=== PATIENT | female | born 1975 | race Caucasian/White ===

== ENCOUNTER 2019-10-09 14:36 | Emergency (ER) | payer MEDICAID, SELFPAY ==
[2019-10-09 15:46] VITALS: BP 105/76; PULSE 81; RESP 16; TEMP 36.9; O2SAT 100; BMI 22.6
--- NOTE | 2019-10-09 15:56 | HMH.EDUTC ---
[facility] Disposition Clinical Impression: Bronchitis, Exposure to COVID-19 virus Disposition: Home, Self-Care Condition on Discharge: Good Instructions: Preventing the Spread of Coronavirus Discharge Instructions Additional Instructions: Drink plenty of fluids. Take tylenol for pain or fever. Take the medications as directed. Follow up with your regular doctor. GO TO THE ER FOR ANY WORSENING SYMPTOMS FOLLOW THE DIRECTIONS ON THE COVID-19 HAND OUT THAT WE GAVE YOU REGARDING SELF-ISOLATION UNTIL YOU KNOW YOUR COVID-19 RESULTS Prescriptions: Ondansetron [Zofran 4mg ODT] 4 mg PO Q8HP PRN #20 tab.rapdis PRN Reason: Nausea Transmission Status: Received by [id number] Azithromycin [Z-Maurice 250mg Tab*] 250 mg PO UD DOSE PK #6 tab Transmission Status: Received by [id number] Referrals: Provider,Referral, [Primary Care Provider] - Time of Disposition: 15:58 Medical Decision Making - Medical Records Medical records reviewed: No: I reviewed the patient's medical records. - Daniel Inquiry Pt receiving controlled substance: No Vital Signs: 10/09/19 15:46 10/09/19 16:22 Temperature 98.4 F 98.4 F Temperature Source Oral Oral Pulse Rate 81 Pulse Rate [Right] 81 Respiratory Rate 16 16 Blood Pressure 105/76 L Blood Pressure [Right Arm] 105/76 L Blood Pressure Mean [Right Arm] 85 Blood Pressure Source Automatic Cuff Blood Pressure Source [Right Arm] Automatic Cuff Blood Pressure Position Sitting Blood Pressure Position [Right Arm] Sitting 02 Sat by Pulse Oximetry 100 Oxygen Delivery Method Room Air Room Air [facility] HPI - General Stated complaint: covid symptoms Time Seen by Provider: 10/09/19 15:56 Mode of Arrival: Ambulatory Source of Information: Patient Limitations: No Limitations Description of Symptoms (Recalled from Triage Doc. by RN): Pt was exposed to covid on ad c/o cough, fever, headaches and leg aches HEENT Symptoms (Recalled from RN notes): No Resp Symptoms (Recalled from RN notes): No Skin Symptoms (Recalled from RN notes): No MS Symptoms (Recalled from RN notes): No Functional Status (Recalled from RN notes): na - History of Present Illness Provider Complaint: She reports that she has felt bad for the past 2 days. She has ran a fever up to 100.4 and she has a dry cough. - Related Data Previous Rx's Medication Instructions Recorded Azithromycin [Z-Maurice 250mg Tab*] 250 mg PO UD DOSE PK #6 tab 10/09/19 Ondansetron [Zofran 4mg ODT] 4 mg PO Q8HP PRN #20 tab.rapdis 10/09/19 Allergies Allergy/AdvReac Type Severity Reaction Status Date / Time CODEINE Allergy Severe hives/shortness Uncoded 02/17/17 15:30 of air PENICILLIN Allergy Unknown unknown Uncoded 02/17/17 15:30 PINEAPPLE Allergy Unknown anaphylacti Uncoded 02/17/17 15:30 c - Worker's Comp Is this a Worker's Comp case?: No H History - Hepatitis A Screen Drug use history?: No High risk sexual behaviors?: No History of sexually transmitted infection?: No Currently employed?: No Childcare worker?: Yes Do you have indoor plumbing?: Yes Do you have electricity?: Yes Attestation statement:: This patient has been screened for Hepatitis A risk factors. I have reviewed the patient's past medical history: Yes ROS Obtained: Yes All systems reviewed & no additional complaints - Constitutional Constitutional: Reports chills, Reports fever(s), Reports poor appetite, Reports malaise - Eyes Eyes: Denies eye discharge - ENT Ears, Nose, Mouth, and Throat: Reports as per HPI Physical Exam - General General appearance: alert, in no apparent distress - Head Head exam: atraumatic, normocephalic, normal inspection - Eye Eye exam: Present: normal appearance, PERRL, EOMI - ENT ENT exam: Present: normal exam, normal oropharynx, mucous membranes moist, TM's normal bilaterally, normal external ear exam - Neck Neck exam: Present: normal inspection, f
[2019-10-09 16:22] VITALS: BP 105/76; PULSE 81; RESP 16; TEMP 36.9; O2SAT 100
== END 2019-10-09 16:23 | disposition home or self-care (01) ==
PROVIDERS: Emergency Provider Nurse Practitioner Family
DX: J20.9 Acute bronchitis, unspecified (principal); Z20.828 Contact with and (suspected) exposure to other viral communicable diseases; Z88.0 Allergy status to penicillin; Z88.5 Allergy status to narcotic agent
CPT/HCPCS: 99201; U0003

== ENCOUNTER 2019-12-02 19:25 | Emergency (ER) | payer BC, SELFPAY ==
[2019-12-02 19:48] VITALS: BP 111/80; PULSE 85; RESP 14; TEMP 36.9; O2SAT 99; BMI 23.4
--- NOTE | 2019-12-02 19:57 | HMH.EDUTC ---
[facility] Disposition Clinical Impression: Exposure to COVID-19 virus Sinusitis Qualifiers: Sinusitis location: unspecified location Chronicity: acute Recurrence: non-recurrent Qualified Code(s): J01.90 - Acute sinusitis, unspecified Disposition: Home, Self-Care Condition on Discharge: Good Instructions: Sinusitis, DI for Sinusitis, Preventing the Spread of Coronavirus Discharge Instructions Additional Instructions: Drink plenty of fluids. Take tylenol or ibuprofen for pain or fever. Take the medications as directed. Follow up with your regular doctor. GO TO THE ER FOR ANY WORSENING SYMPTOMS FOLLOW THE DIRECTIONS ON THE COVID-19 HAND OUT THAT WE GAVE YOU REGARDING SELF-ISOLATION UNTIL YOU KNOW YOUR COVID-19 RESULTS Prescriptions: Ondansetron [Zofran 4mg ODT] 4 mg PO Q8HP PRN #9 tab.rapdis PRN Reason: Nausea Transmission Status: Pending to [id number] Azithromycin [Z-Maurice 250mg Tab*] 250 mg PO UD DOSE PK #6 tab Transmission Status: Pending to [id number] Referrals: Lili Alba MD [Primary Care Provider] - Forms: Work/School Release Time of Disposition: 20:00 Medical Decision Making - Medical Records Medical records reviewed: No: I reviewed the patient's medical records. - Daniel Inquiry Pt receiving controlled substance: No Vital Signs: 12/02/19 19:48 Temperature 98.4 F Temperature Source Oral Pulse Rate [Radial] 85 Respiratory Rate 14 Blood Pressure [Right Arm] 111/80 Blood Pressure Mean [Right Arm] 90 Blood Pressure Source [Right Arm] Automatic Cuff Blood Pressure Position [Right Arm] Sitting 02 Sat by Pulse Oximetry 99 Oxygen Delivery Method Room Air - Lab Data Lab results reviewed: Yes: I reviewed the patient's lab results. Orders (Tests/Meds): ORDERS Category Date Time Status Covid-19 Nasal PCR ([facility]) Routine Lab 12/02/19 19:55 Received [facility] HPI - General Stated complaint: Sore throat,cough,V&D,Abd pain want Covid testing Time Seen by Provider: 12/02/19 19:57 Mode of Arrival: Ambulatory Source of Information: Patient Limitations: No Limitations Description of Symptoms (Recalled from Triage Doc. by RN): covid exposure, sore thraot, costa, n/d, stomach cramps, body aches. HEENT Symptoms (Recalled from RN notes): Yes Resp Symptoms (Recalled from RN notes): Yes Skin Symptoms (Recalled from RN notes): No MS Symptoms (Recalled from RN notes): Yes Functional Status (Recalled from RN notes): wnl - History of Present Illness Provider Complaint: She c/o body aches, nausea, sinus drainage, head ache and diarrhea. She has felt bad for about 4 days, but today her symptoms intensified. - Related Data Previous Rx's Medication Instructions Recorded Azithromycin [Z-Maurice 250mg Tab*] 250 mg PO UD DOSE PK #6 tab 10/09/19 Ondansetron [Zofran 4mg ODT] 4 mg PO Q8HP PRN #20 tab.rapdis 10/09/19 Azithromycin [Z-Maurice 250mg Tab*] 250 mg PO UD DOSE PK #6 tab 12/02/19 Ondansetron [Zofran 4mg ODT] 4 mg PO Q8HP PRN #9 tab.rapdis 12/02/19 Allergies Allergy/AdvReac Type Severity Reaction Status Date / Time CODEINE Allergy Severe hives/shortness Uncoded 02/17/17 15:30 of air PENICILLIN Allergy Unknown unknown Uncoded 02/17/17 15:30 PINEAPPLE Allergy Unknown anaphylacti Uncoded 02/17/17 15:30 c - Worker's Comp Is this a Worker's Comp case?: No [facility] History - Hepatitis A Screen Drug use history?: No High risk sexual behaviors?: No History of sexually transmitted infection?: No Currently employed?: No Childcare worker?: No Do you have indoor plumbing?: Yes Do you have electricity?: Yes Attestation statement:: This patient has been screened for Hepatitis A risk factors. I have reviewed the patient's past medical history: Yes - Social History Alcohol Intake: never Occupational Status: employed Housing: house ROS Obtained: Yes All systems reviewed & no additional complaints - Constitutional Constitutional: Repor
[2019-12-02 20:14] VITALS: BP 111/80; PULSE 85; RESP 14; TEMP 36.9; O2SAT 99
== END 2019-12-02 20:14 | disposition home or self-care (01) ==
PROVIDERS: Emergency Provider Nurse Practitioner Family; PCP Student in an Organized Health Care Education/Training Program
DX: J01.90 Acute sinusitis, unspecified (principal); Z20.828 Contact with and (suspected) exposure to other viral communicable diseases; Z88.0 Allergy status to penicillin; Z88.5 Allergy status to narcotic agent
CPT/HCPCS: 99201; U0003

== ENCOUNTER → 2020-12-25 10:36 | Outpatient (CLI) | payer OTHER, SELFPAY ==
[2020-12-25 10:50] LABS: Influenza A, PCR Not Detected (NotDetected); Influenza B, PCR Not Detected (NotDetected)
[2020-12-25 11:14] LABS: Coronavirus 19, PCR Detected (NotDetected)
== END ==
PROVIDERS: Visit Provider Nurse Practitioner
DX: Z20.822 Contact with and (suspected) exposure to COVID-19 (principal); U07.1 COVID-19
CPT/HCPCS: C9803; U0003; U0005

== ENCOUNTER 2021-01-22 06:09 | Emergency (ER) | payer OTHER, SELFPAY ==
[2021-01-22 06:11] VITALS: BP 117/69; PULSE 56; RESP 16; TEMP 36.8; O2SAT 97; BMI 24.5
--- NOTE | 2021-01-22 06:41 | HMH.EDWNDL ---
ED Disposition Clinical Impression: Needle stick injury of finger Disposition: Home, Self-Care Condition on Discharge: Good Instructions: DI for Puncture Wound Additional Instructions: see employee health for follow up Referrals: Goldy Khalil MD [Primary Care Provider] - - Critical Care Critical Care Time: No Attestation: On 01/22/21, the high probability of a clinically significant, sudden or life threatening deterioration of the following system(s) required my full and direct attention, intervention and personal management. The time I documented below is in addition to time spent performing reported procedures but includes the following listed in this critical care notation. Medical Decision Making - Medical Records Medical records reviewed: Yes: I reviewed the patient's medical records. - Daniel Inquiry Pt receiving controlled substance: No Vital Signs: 01/22/21 06:11 Temperature 98.2 F Temperature Source Oral Pulse Rate [Right Radial] 56 L Respiratory Rate 16 Blood Pressure [Right Arm] 117/69 Blood Pressure Mean [Right Arm] 85 Blood Pressure Source [Right Arm] Automatic Cuff Blood Pressure Position [Right Arm] Sitting 02 Sat by Pulse Oximetry 97 Oxygen Delivery Method Room Air Orders (Tests/Meds): ORDERS Category Date Time Status Complete Blood Count Auto Diff Stat Lab 01/22/21 06:16 Ordered HBsAg Screen Stat Lab 01/22/21 06:16 Ordered HIV Panel [id number] Stat Lab 01/22/21 06:16 Ordered Hepatitis B Surf Ab Quant Stat Lab 01/22/21 06:16 Ordered Hepatitis C Antibody Stat Lab 01/22/21 06:16 Ordered Liver Panel Stat Lab 01/22/21 06:16 Ordered PT/PTT Stat Lab 01/22/21 06:16 Ordered Medical Decision Narrative: pt with pw and will obtain blood per protocol Wound/Laceration HPI - General Chief Complaint: Recheck/Abnormal Lab/Rx Stated Complaint: needle stick to finger Time Seen by Provider: 01/22/21 06:30 Mode of Arrival: Ambulatory Source of Information: Patient, Medical Record Limitations: No Limitations Description of Symptoms (Recalled from ER Triage Doc. by RN): PT had neddle stick injury while drawing blood from used needle. - History of Present Illness HPI narrative: needle stick to finger - known source Onset (ago): hour(s) Extremity Location: Left: hand Place: work Patient tetanus UTD: Yes Context: accidental Associated symptoms: none - Related Data Previous Rx's Medication Instructions Recorded Azithromycin [Z-Maurice 250mg Tab*] 250 mg PO UD DOSE PK #6 tab 10/09/19 Ondansetron [Zofran 4mg ODT] 4 mg PO Q8HP PRN #20 tab.rapdis 10/09/19 Azithromycin [Z-Maurice 250mg Tab*] 250 mg PO UD DOSE PK #6 tab 12/02/19 Ondansetron [Zofran 4mg ODT] 4 mg PO Q8HP PRN #9 tab.rapdis 12/02/19 Allergies Allergy/AdvReac Type Severity Reaction Status Date / Time CODEINE Allergy Severe hives/shortness Uncoded 02/17/17 15:30 of air PENICILLIN Allergy Unknown unknown Uncoded 02/17/17 15:30 PINEAPPLE Allergy Unknown anaphylacti Uncoded 02/17/17 15:30 c [facility] History - Hepatitis A Screen Drug use history?: No High risk sexual behaviors?: No History of sexually transmitted infection?: No Currently employed?: No Childcare worker?: No Do you have indoor plumbing?: Yes Do you have electricity?: Yes Attestation statement:: This patient has been screened for Hepatitis A risk factors. I have reviewed the patient's past medical history: Yes - Social History Alcohol Intake: never Occupational Status: employed Housing: house ROS Obtained: Yes All systems reviewed & no additional complaints - Constitutional Constitutional: Denies fever(s) - Eyes Eyes: Denies change in vision - Cardiovascular Cardiovascular: Denies chest pain Physical Exam - General General appearance: alert - Head Head exam: normocephalic - Eye Eye exam: Present: PERRL, EOMI - ENT ENT exam: Present: mucous membranes moist - Neck Neck exam: Presen
[2021-01-22 06:46] LABS: Basophils % 0.9 % (0.1-2.0); Eosinophils # 0.1 K/mm3 (0.0-0.4); Eosinophils % 2.1 % (0.1-12.0); Hematocrit 39.7 % (37.0-47.0); Hemoglobin 13.4 g/dL (12.2-16.2); Lymphocytes # 1.7 K/mm3 (0.7-4.5); Lymphocytes % 38.7 % (10-50); Mean Corpuscular HGB Conc 33.8 g/dL (31.8-35.4); Mean Corpuscular Hemoglobin 28.8 pg (27.0-31.2); Mean Corpuscular Volume 85.2 fl (81-99); Mean Platelet Volume 9.1 fl (7.4-10.4); Monocytes # 0.3 K/mm3 (0.1-1.0); Monocytes % 5.8 % (1.7-9.3); Neutrophils # 2.3 K/mm3 (1.8-7.8); Neutrophils % 52.6 % (37.0-80.0); Platelet Count 305 K/mm3 (142-424); Red Blood Count 4.65 M/mm3 (4.20-5.40); Red Cell Distribution Width 14.6 % (11.5-17.5); White Blood Count 4.4 K/mm3 (4.8-10.8)
[2021-01-22 06:53] LABS: Alanine Aminotransferase 7 U/L (12-78); Albumin Level 4.3 g/dl (3.5-5.0); Alkaline Phosphatase 77 U/L (38-126); Aspartate Amino Transferase 23 U/L (14-36); Bilirubin,Direct 0.1 mg/dl (0.0-0.4); Bilirubin,Indirect 0.3 mg/dL (0.0-0.9); Bilirubin,Total 0.4 mg/dl (0.2-1.3); Bilirubin,Unconjugated 0.3 mg/dL (0.0-1.1); Total Protein,Serum 6.8 g/dl (6.3-8.2)
[2021-01-22 06:55] LABS: INR 0.94 (0.9-1.1); Prothrombin Time 10.7 seconds (10.1-12.5)
[2021-01-22 07:32] VITALS: BP 120/71; PULSE 60; RESP 16; TEMP 36.8; O2SAT 97
[2021-01-23 08:06] LABS: HIV Screen 4th Generation wRfx Non Reactive (Non Reactive)
[2021-01-23 11:42] LABS: Hepatitis B Surface Antigen Negative (Negative); Hepatitis C Antibody 0.1 s/co ratio (0.0-0.9)
== END 2021-01-22 07:33 | disposition home or self-care (01) ==
PROVIDERS: Emergency Provider Emergency Medicine; PCP Pediatrics
DX: S61.231A Puncture wound without foreign body of left index finger without damage to nail, initial encounter (principal); W26.8XXA Contact with other sharp object(s), not elsewhere classified, initial encounter; W45.8XXA Other foreign body or object entering through skin, initial encounter; Y92.69 Other specified industrial and construction area as the place of occurrence of the external cause
CPT/HCPCS: 80076; 85025; 85610; 85730; 86703; 86706; 87340; 87380; 99282; G0432

== ENCOUNTER → 2021-11-22 14:40 | Outpatient (CLI) | payer BC, SELFPAY | PROVIDERS: PCP Nurse Practitioner Family; Visit Provider Nurse Practitioner Family | DX: G47.8 Other sleep disorders (principal); G47.00 Insomnia, unspecified; R53.83 Other fatigue; R51.9 Headache, unspecified; F10.10 Alcohol abuse, uncomplicated | CPT/HCPCS: G0399 ==

== ENCOUNTER → 2021-11-29 17:00 | Outpatient (CLI) | payer BC, SELFPAY ==
--- NOTE | 2021-11-29 17:00 | MR_ITS ---
PROCEDURE INFORMATION: Exam: MR Head Without Contrast Exam date and time: 11/29/2021 5:04 PM Age: 46 years old Clinical indication: Pain; Headache; Additional info: Headaches with abn neuro exam. Headaches with abnormal neuro exam. Headaches on right side. Short term memory loss. Floaters bilateral TECHNIQUE: Imaging protocol: Magnetic resonance imaging of the head without contrast. COMPARISON: No relevant prior studies available. FINDINGS: A few scattered foci of T2 prolongation within the subcortical and periventricular white matter without evidence of restricted diffusion in the supra-or infratentorial brain. . Remainder of the brain parenchyma demonstrates normal signal intensity without an intra- or extra-axial mass or abnormality. No mass effect or midline shift. . Midline brain structures including the corpus callosum, pituitary gland, pineal region, and craniovertebral junction are unremarkable. Ventricles and sulci are mildly prominent without evidence of hydrocephalus. Intracranial vessels demonstrate a normal flow-void. . Bilateral mastoid effusion. IMPRESSION: 1. Unremarkable study without a supra-, infratentorial mass or abnormality. 2. No evidence of hemorrhagic or ischemic infarct and no hydrocephalus.
--- NOTE | 2021-11-29 17:43 | XR_ITS ---
PROCEDURE INFORMATION: Exam: XR Cervical Spine Exam date and time: 11/29/2021 5:45 PM Age: 46 years old Clinical indication: Neck pain TECHNIQUE: Imaging protocol: Radiologic exam of the cervical spine. Views: 4 or 5 views. COMPARISON: No relevant prior studies available. FINDINGS: Bones/joints: Straightening of normal curvature of the cervical spine, alignment is grossly normal. Normal bone density. No obvious acute vertebral compression fracture or deformity. Intervertebral discs are normal in height. Dens, C1-C2 articulation are normal. No abnormal motion on flexion/extension views. Soft tissues: Prevertebral soft tissues are unremarkable. IMPRESSION: Unremarkable study without an acute spine injury/abnormality. COMMENT: Recommend followup with MRI if persistent/new/worsening symptoms or symptoms unexplained by the current study.
== END ==
LOC: RAD 17:00
PROVIDERS: PCP Nurse Practitioner Family; Visit Provider Nurse Practitioner Family
DX: G43.119 Migraine with aura, intractable, without status migrainosus (principal); G89.29 Other chronic pain; H57.02 Anisocoria; M54.2 Cervicalgia; R29.2 Abnormal reflex
CPT/HCPCS: 70551; 72052

== ENCOUNTER → 2022-01-03 14:31 | Outpatient (CLI) | payer BC, SELFPAY ==
--- NOTE | 2022-01-03 14:32 | MR_ITS ---
FINAL REPORT CLINICAL HISTORY: low back pain with abn relfexes. no injury or trauma. FINDINGS: Multiplanar MR imaging of the lumbar spine was performed without contrast. On the sagittal T2-weighted images, disc degeneration is seen at L5-S1. The vertebral alignment is normal. There is no evidence of fracture. The conus has an unremarkable appearance. T11-T12: There is no significant canal stenosis or neural foraminal narrowing. T12-L1: There is no significant canal stenosis or neural foraminal narrowing. L1-2: There is no significant canal stenosis or neural foraminal narrowing. L2-3: An annular bulge is present. There is no significant canal stenosis or neural foraminal narrowing. L3-4: There is no significant canal stenosis or neural foraminal narrowing. L4-5: There is an annular bulge and mild left neural foraminal narrowing. L5-S1: There is an annular bulge and facet arthropathy. There is a posterior midline annular tear and small central disc protrusion. There is mild spurring of the SI joints. IMPRESSION: Degenerative changes and spondylosis as described. Posterior midline annular tear and small central disc protrusion at L5-S1. Reviewed, Interpreted and Dictated by Moisés Rosa III, MD Transcribed by Hebert Osorio Authenticated and [facility]
--- NOTE | 2022-01-03 14:32 | MR_ITS ---
FINAL REPORT CLINICAL HISTORY: neck pain with brisk reflexes. right sided neck pain. intermittent right arm numbness and tingling. migraine headache. FINDINGS: Multiplanar MR imaging of the cervical spine was performed without contrast. On the sagittal T2-weighted images, disc degeneration is seen throughout. There is no evidence of fracture. The vertebral alignment is normal. The cervical spinal cord has an unremarkable appearance without evidence of mass, edema or syrinx. No significant canal stenosis is identified. The cervicomedullary junction is normal. C2-3: There is no significant canal stenosis or neural foraminal narrowing. C3-4: There is an annular bulge with uncovertebral osteophytes. There is mild left neural foraminal narrowing. C4-5: There is an annular bulge with uncovertebral osteophytes. There is mild right and moderate left neural foraminal narrowing. C5-6: An annular bulge is present. There is no significant canal stenosis or neural foraminal narrowing. C6-7: An annular bulge is present. There is no significant canal stenosis or neural foraminal narrowing. C7-T1: There is no significant canal stenosis or neural foraminal narrowing. IMPRESSION: Multilevel degenerative disc disease with areas of neural foraminal narrowing. No focal disc protrusion or significant central canal stenosis. Reviewed, Interpreted and Dictated by Moisés Rosa III, MD Transcribed by Hebert Osorio Authenticated and [facility]
--- NOTE | 2022-01-03 16:27 | XR_ITS ---
PROCEDURE INFORMATION: Exam: XR Lumbosacral Spine Exam date and time: 01/03/2022 4:28 PM Age: 46 years old Clinical indication: Low back pain; Additional info: Low back pain with abn reflexes TECHNIQUE: Imaging protocol: Radiologic exam of the lumbosacral spine. Views: 2 or 3 views. COMPARISON: MR LUMBAR SPINE WO CON 01/03/2022 2:34 PM FINDINGS: Bones/joints: mild narrowing L5-S1 disc space. Soft tissues: Unremarkable. Organs: Surgical clips related to previous cholecystectomy. IMPRESSION: Mild changes of disc degeneration L5-S1.
== END ==
PROVIDERS: PCP Internal Medicine Adolescent Medicine; Visit Provider Nurse Practitioner Family
DX: G89.29 Other chronic pain (principal); M54.2 Cervicalgia; M54.50 Low back pain, unspecified; R29.2 Abnormal reflex
CPT/HCPCS: 72100; 72141; 72148; 76376

== ENCOUNTER → 2022-01-30 13:10 | Outpatient (CLI) | payer BC, SELFPAY ==
--- NOTE | 2022-01-30 13:19 | CT_ITS ---
FINAL REPORT TECHNIQUE: Thin-section axial CT images were performed through the orbits before and after contrast administration. Coronal and sagittal reformatted images were submitted. This study was performed with techniques to keep radiation doses as low as reasonably achievable, (ALARA). Individualized dose reduction techniques using automated exposure control or adjustment of mA and/or kV according to the patient's size were employed. CLINICAL HISTORY: tilted optic disc FINDINGS: The globes are symmetric. There are no intraconal masses. There is no inflammatory stranding. No fluid collections are identified. The sinuses are well aerated. IMPRESSION: No acute abnormality. Reviewed, Interpreted and Dictated by Patrick Ann MD Transcribed by Hebert Osorio Authenticated and [facility]
== END ==
LOC: RAD 13:11
PROVIDERS: PCP Nurse Practitioner Family; Visit Provider Nurse Practitioner Family
DX: Q14.2 Congenital malformation of optic disc (principal)
CPT/HCPCS: 70482; Q9967

== ENCOUNTER 2022-01-30 14:12 | Outpatient (RCR) | payer BC, SELFPAY | END 2022-01-30 14:15 | disposition home or self-care (01) | LOC: PT 14:12 | PROVIDERS: PCP Nurse Practitioner Family; Visit Provider Nurse Practitioner Family | DX: M54.50 Low back pain, unspecified (principal); M51.36 Other intervertebral disc degeneration, lumbar region; R93.89 Abnormal findings on diagnostic imaging of other specified body structures | CPT/HCPCS: 97163 ==

== ENCOUNTER → 2022-04-05 10:24 | Outpatient (CLI) | payer BC, SELFPAY | PROVIDERS: PCP Internal Medicine Adolescent Medicine; Visit Provider Nurse Practitioner Family | DX: N30.90 Cystitis, unspecified without hematuria (principal) | CPT/HCPCS: 87086 ==

== ENCOUNTER → 2022-04-19 10:04 | Outpatient (CLI) | payer BC, SELFPAY ==
[2022-04-19 10:20] LABS: Basophils # 0.1 K/mm3 (0-0.2); Basophils % 1.9 % (0.1-2.0); Eosinophils # 0.2 K/mm3 (0.0-0.4); Eosinophils % 3.1 % (0.1-12.0); Hematocrit 39.9 % (37.0-47.0); Hemoglobin 13.4 g/dL (12.2-16.2); Lymphocytes # 1.9 K/mm3 (0.7-4.5); Lymphocytes % 36.9 % (10-50); Mean Corpuscular HGB Conc 33.6 g/dL (31.8-35.4); Mean Corpuscular Hemoglobin 28.9 pg (27.0-31.2); Mean Corpuscular Volume 85.9 fl (81-99); Mean Platelet Volume 8.6 fl (7.4-10.4); Monocytes # 0.3 K/mm3 (0.1-1.0); Monocytes % 5.4 % (1.7-9.3); Neutrophils # 2.7 K/mm3 (1.8-7.8); Neutrophils % 52.7 % (37.0-80.0); Platelet Count 361 K/mm3 (142-424); Red Blood Count 4.65 M/mm3 (4.20-5.40); Red Cell Distribution Width 13.7 % (11.5-17.5); White Blood Count 5.1 K/mm3 (4.8-10.8)
[2022-04-19 11:13] LABS: Chloride 109 mmol/L (98-107); Sodium 139 mmol/L (136-145)
[2022-04-19 11:14] LABS: Potassium 4.3 mmoL/L (3.5-5.1)
[2022-04-19 11:16] LABS: Alanine Aminotransferase 46 U/L (12-78); Albumin Level 4.2 g/dl (3.5-5.0); Albumin/Globulin Ratio 1.6 (1.1-1.8); Alkaline Phosphatase 91 U/L (38-126); Anion Gap 8.3 mEq/L (5-15); Aspartate Amino Transferase 35 U/L (14-36); Bilirubin,Total 0.5 mg/dl (0.2-1.3); Blood Urea Nitrogen 14 mg/dl (7-17); Calcium 9.4 mg/dl (8.4-10.2); Carbon Dioxide 26 mmol/L (22.0-30.0); Cholesterol 224 mg/dl (140-200); Estimated Glomerular Filt Rate 77 ml/min (>60); GFR (African American) 93 ML/MIN (>60); Globulin 2.6 g/dL (1.3-3.2); Glucose 92 mg/dl (74-100); Total Protein,Serum 6.8 g/dl (6.3-8.2); Triglycerides 81 mg/dl (30-150); VLDL Cholesterol 16 mg/dL (0-40)
[2022-04-19 11:17] LABS: Chol/HDL Ratio 2.9 (1-3.5); HDL Cholesterol 76 mg/dl (40-60)
[2022-04-19 11:28] LABS: Direct LDL Cholesterol 112.78 mg/dL (100-129)
[2022-04-19 11:48] LABS: Thyroid Stimulating Hormone 2.24 uIU/mL (0.465-4.68)
[2022-04-19 12:13] LABS: 25-OH Vitamin D, Total 17.2 ng/mL (30-100)
[2022-04-19 12:45] LABS: Vitamin B12 731 pg/mL (239-931)
[2022-04-20 12:09] LABS: Estradiol 12.6 pg/mL (.)
[2022-04-23 11:22] LABS: LH 87.2 mIU/mL (.)
== END ==
LOC: LAB 10:05
PROVIDERS: PCP Nurse Practitioner Family; Visit Provider Nurse Practitioner Family
DX: R53.83 Other fatigue (principal); E53.8 Deficiency of other specified B group vitamins; E55.9 Vitamin D deficiency, unspecified; R23.2 Flushing; R63.1 Polydipsia; R35.89 Other polyuria; Z01.00 Encounter for examination of eyes and vision without abnormal findings
CPT/HCPCS: 36415; 80053; 80061; 82306; 82607; 82670; 83001; 83002; 84443; 85025

== ENCOUNTER 2022-08-14 17:30 | Outpatient (RCR) | payer OTHER, SELFPAY ==
--- NOTE | 2022-07-22 14:25 | HMH.PTOPEV ---
PT Outpatient Evaluation Rehab PT Outpatient Evaluation Start: 07/22/22 12:57 Freq: Status: Active Protocol: Document 07/22/22 13:59 RICARDO (Rec: 07/22/22 14:25 RICARDO [id number]) E-signed By Tho Bradshaw, PT Outpatient Therapy Subjective History Subjective History Patient is a 46 year old female presenting to outpatient PT with reports of chronic cervical and lumbar spine pain. Daily migraines associated with cervical spine pain. CS symptoms have progressively gotten worse over the past 3 weeks. Most recent imgaing indicates CS/LS degenerative changes. No other comorbidities to report. Chief Complaint Pain,Stiff,Clicks Symptom Type Ache,Sharp,Shooting Symptoms Relieved By Rest/Positioning,OTC Meds, Prescription Meds Symptoms Aggravated By Sitting,Standing,Bending/ Stooping,Physical Activity, Walking,Lifting Prior Functional Limitations None Current Functional Limitations Reaching,Lifting,Housework, Desk Work/Reading,Driving, Standing,Sitting,Walking, Bending/Stooping Symptom Description Constant but Variable, Intermittent Level of pain today (0-10) 4 Pain scale - at its best (0-10) 7 Pain scale - at its worst (0-10) 0 Cervical Eval Palpation Cervical Muscles R Cervical Paraspinal,L Cervical Paraspinal,R Suboccipital,L Suboccipital,R Upper Trapezius,L Upper Trapezius Cervical/Thoracic Palpation Findings Tenderness Posture Head/C-Spine Posture Sitting Position C-Spine Flattened Head/C-Spine Posture Standing Position C-Spine Flattened Flexibility Deficits Upper Trapezius Muscle Length (R) Moderate Tightness,(L) Moderate Tightness Sternocleidomastoid Muscle Length (R) Moderate Tightness,(L) Moderate Tightness Pectoralis Minor Muscle Length (R) Moderate Tightness,(L) Moderate Tightness Passive Joint Mobility Cervical PIVM WNL: R OA L OA R AA L AA R C2/3 L C2/3
== END 2022-08-14 17:35 | disposition home or self-care (01) ==
LOC: PT 17:30
PROVIDERS: PCP Nurse Practitioner Family; Visit Provider Nurse Practitioner Family
DX: M54.2 Cervicalgia (principal); G44.86 Cervicogenic headache; M51.36 Other intervertebral disc degeneration, lumbar region; G43.119 Migraine with aura, intractable, without status migrainosus; G89.29 Other chronic pain
CPT/HCPCS: 20561; 97010; 97012; 97014; 97110; 97140; 97163; G0283

== ENCOUNTER → 2022-10-18 10:50 | Outpatient (CLI) | payer OTHER, SELFPAY ==
--- NOTE | 2022-10-18 10:50 | MR_ITS ---
PROCEDURE INFORMATION: Exam: MR Head Without Contrast Exam date and time: 10/18/2022 10:50 AM Age: 46 years old Clinical indication: Pain; Headache; Migraine; Additional info: Worsening headaches. Ringing in ears, blurry vision. Pain on right side of head TECHNIQUE: Imaging protocol: Magnetic resonance imaging of the head without contrast. COMPARISON: MR HEAD/BRAIN WO CON 11/29/2021 5:04 PM FINDINGS: Brain parenchyma demonstrates normal signal intensity without an intra- or extra-axial mass or abnormality. No mass effect or midline shift. No evidence of restricted diffusion in the supra-or infratentorial brain. . Midline brain structures including the corpus callosum, pituitary gland, pineal region, and craniovertebral junction are unremarkable. Ventricles and sulci are normal without evidence of hydrocephalus. Intracranial vessels demonstrate a normal flow-void. IMPRESSION: 1. Normal study without acute hemorrhagic or ischemic infarct. 2. No evidence of supra-, infratentorial mass or abnormality.
== END ==
LOC: RAD 10:50
PROVIDERS: PCP Internal Medicine Adolescent Medicine; Visit Provider Nurse Practitioner Family
DX: R51.9 Headache, unspecified (principal)
CPT/HCPCS: 70551

== ENCOUNTER → 2022-10-22 12:58 | Outpatient (POV) | payer OTHER, SELFPAY ==
--- NOTE | 2022-10-22 13:03 | EXP.PAIN.OV ---
HPI Data of Consult Patient: new to practice Consult date: 10/22/22 Requesting Physician: Iris Arellano APRN Primary Care Provider: Kodak Newell MD Consult Narrative History of present illness: Ms. aBrrera is a 46 year old female who presents today as a new patient. She is a referral from [facility]. Today she rates her pain a 6 out of 10. Patient states she has pain in multiple locations including her low back with radiating symptoms to her left buttocks and into her legs. She does state this pain is an aching, throbbing sensation with stabbing pain at random times. Patient states this pain has been going on for at least a couple of years and she does believe it may be related to her long history of riding horses and has had injuries during these activities. She also states she has neck and bilateral shoulder pain that is an aching, throbbing, sharp sensations that is worse with increased activity. She does state the pain in her neck limits her range of motion and does have at the radiating symptoms with numbness and tingling. Patient does state that her right side does typically seem like it is the worst side. She does also state that her neck pain seems to be aggravated with certain movements such as bending or twisting. Patient does also have a longstanding history of headaches and migraines. She does state that she has tried Botox and steroids in the past and initially they did seem to help however over time they became less effective. Patient has been on multiple medications for her headaches. Patient denies any previous back surgery or injective history in her back. Patient has had physical therapy with no additional improvement. Patient denies any previous chiropractor therapy. Patient has tried [id number] Tylenol and ibuprofen along with heat and ice and topicals with minimal relief. Patient is not on any scheduled medications. Her Daniel is [id number]. Its been reviewed and appropriate. CC: Iris Arellano APRN [facility] Disclaimer: The information contained in this section may have been updated after the patient was seen, as this information can be updated by other users. Medical History (Updated 10/22/22 @ 13:48 by Iris Arelalno APRN) Anxiety Depression Deviated nasal septum GERD (gastroesophageal reflux disease) Heart palpitations History of alcohol use disorder Migraine Nasal sore Surgical History History of cholecystectomy History of hysterectomy Hx of tubal ligation Family History Other Alcoholism COPD (chronic obstructive pulmonary disease) Cancer Dementia Heart attack Hypertension Obesity Stroke Thyroid disorder Social History (Updated 10/22/22 @ 13:26 by Sara Spain RN) Smoking Status: Former smoker second hand exposure: No alcohol intake: former year quit: 2021 counseling given: Yes substance use type: denies use current occupational status: employed Travel in the last 8 weeks: None adopted: No caregiver/support person: No foster care: No household members: spouse housing: house lives independently: Yes marital status: number of children: 3 education level: high school service: No mcc: No current occupation: works at [employer] office; lab Hx Recent Travel: No physical activity: none miguelina/mormonism: Sikhism special miguelian needs: No working smoke detector in home: Yes fire extinguisher in home: No carbon monox detector in home: No firearms in home: Yes firearms unloaded and locked: Yes do you feel safe at home: Yes victim of physical abuse: No victim of emotional abuse: No victim of sexual abuse: No Review of Systems Review of Systems Review of systems:: pertinent systems reviewed and negative unless documented below Review of systems (narrative
[2022-10-22 13:25] VITALS: BP 109/71; PULSE 71; RESP 18; O2SAT 99; BMI 27.1
== END ==
PROVIDERS: PCP Internal Medicine Adolescent Medicine; Visit Provider Nurse Practitioner Family
DX: M54.50 Low back pain, unspecified (principal); G89.29 Other chronic pain; R51.9 Headache, unspecified; G43.719 Chronic migraine without aura, intractable, without status migrainosus; M54.2 Cervicalgia; M54.12 Radiculopathy, cervical region
CPT/HCPCS: 99202; G0463

== ENCOUNTER → 2022-11-26 08:09 | Outpatient (CLI) | payer OTHER, SELFPAY ==
--- NOTE | 2022-11-26 08:50 | MM_ITS ---
PROCEDURE INFORMATION: Exam: MG Bilateral Screening 3D Mammography Exam date and time: 11/26/2022 8:54 AM Age: 47 years old Clinical indication: Screening examination TECHNIQUE: Imaging protocol: Bilateral Screening tomosynthesis and 2D mammography including computer-aided detection (CAD) when performed. COMPARISON: No relevant prior studies available. FINDINGS: MAMMOGRAPHY: Breast composition: There are scattered areas of fibroglandular density. Mass: None. Architectural distortion: None. Calcifications: No suspicious calcifications. Asymmetric density: None. Skin thickening: None. Axillary adenopathy: None. IMPRESSION: No mammographic evidence of malignancy. Annual screening is recommended unless otherwise clinically indicated. ASSESSMENT: BI-RADS Category 1: Negative
== END ==
PROVIDERS: PCP Internal Medicine Adolescent Medicine; Visit Provider Nurse Practitioner Family
DX: Z12.31 Encounter for screening mammogram for malignant neoplasm of breast (principal)
CPT/HCPCS: 77063; 77067

== ENCOUNTER → 2022-11-28 13:11 | Outpatient (POV) | payer OTHER, SELFPAY ==
[2022-11-28 13:28] VITALS: BP 117/80; PULSE 67; RESP 18; O2SAT 97; BMI 29.2
--- NOTE | 2022-11-28 15:31 | EXP.PAIN.SOA ---
[facility] Pain Management SOAP Note Subjective:: This patient is a very pleasant 47-year-old female that comes our clinic today for follow-up visit after insurance denial regarding lumbar epidural steroid injection at the L4-5 level. Patient has low back pain she describes as constant, dull, aching. Patient also complains of bilateral hip and leg radicular symptoms. She rates her pain 7/10. Patient has difficulty doing light housework secondary to low back pain and radicular pain. She has difficulty with yard work due to low back pain as well as bilateral hip and leg radicular symptoms. Patient has L4-5 annular bulge with mild neural left foraminal narrowing. Also, there is an annular bulge at L5-S1 with facet hypertrophy bilaterally. At the L5-S1 level there is a posterior midline annular tear and a small central disc protrusion. I recommend lumbar epidural steroid injection at the L5-S1 level. This would be treatment for the compression of the L5 nerve which is responsible for the patient's radicular pain down the back of the leg to the heel. Patient also complains of cervical neck pain that she describes as constant, dull, aching. She has difficulty with flexion, extension, left and right rotation. However, the low back pain with radicular symptoms are the patient's main complaint. The patient Daniel #[id number] has been reviewed and appropriate. Patient has failed conservative measures such as physical therapy, home exercise program, NSAIDs and acetaminophen. Objective:: Patient is awake alert Theodore x3. In no acute distress. Flexion-extension lumbar spine somewhat guarded secondary to pain. Deep tendon reflexes upper and lower extremities normal. Motor strength upper lower extremities normal. There is no gross sensory deficit. Gait is normal. Assessment:: Degenerative disc lumbar spine multilevels. Lumbar radiculopathy. Lumbar disc bulge multilevel L4-5 and L5-S1. Lumbar facet hypertrophy. Lumbar spondylosis. Plan:: We will seek approval from insurance for lumbar epidural steroid injection at the L4-5 level. This would be most significant nonsurgical treatment for the compression of the L5 nerve. I discussed in detail with the patient regarding the injections. Answered her questions. She wishes to proceed. [facility] Disclaimer: The information contained in this section may have been updated after the patient was seen, as this information can be updated by other users. Medical History Anxiety Depression Deviated nasal septum GERD (gastroesophageal reflux disease) Heart palpitations History of alcohol use disorder Relapse late July 2022. Last drink 40-50 days ago. Attending alcohol Anonymous meetings weekly Migraine Nasal sore Surgical History History of cholecystectomy History of hysterectomy Hx of tubal ligation Family History Other Alcoholism COPD (chronic obstructive pulmonary disease) Cancer Dementia Heart attack Hypertension Obesity Stroke Thyroid disorder Social History Smoking Status: Former smoker second hand exposure: No alcohol intake: former year quit: 2021 counseling given: Yes substance use type: denies use current occupational status: employed Travel in the last 8 weeks: None adopted: No caregiver/support person: No foster care: No household members: spouse housing: house lives independently: Yes marital status: number of children: 3 education level: high school service: No senior living: No current occupation: works at [employer] office; lab Hx Recent Travel: No physical activity: none miguelina/hoahaoism: Restoration special miguelina needs: No working smoke detector in home: Yes fire extinguisher in home: No carbon monox detector in
== END ==
PROVIDERS: Visit Provider Nurse Anesthetist, Certified Registered
DX: M51.16 Intervertebral disc disorders with radiculopathy, lumbar region (principal); M47.26 Other spondylosis with radiculopathy, lumbar region
CPT/HCPCS: 99212; G0463

== ENCOUNTER → 2022-12-17 13:03 | Outpatient (POV) | payer OTHER, SELFPAY ==
--- NOTE | 2022-12-17 13:28 | EXP.PAIN.SOA ---
[facility] Pain Management SOAP Note Subjective:: Patient is a pleasant 47-year-old female who presents today for insurance denial of the lumbar epidural steroid injection. We are currently treating the patient for degenerative disc disease of cervical and lumbar spine with cervical and lumbar radiculopathy symptoms, lumbar spondylosis, lumbar facet arthropathy. Today she rates her pain a 5 out of 10. Patient denies any new trauma or injury. She does state that she continues to have neck and low back pain with radiating symptoms into her upper and lower extremities. She does state that the low back is bothering her worse today. She does describe this is an aching, throbbing sensation with numbness and tingling into her lower extremities. This is been going on for quite some time and progressively worsened. Patient does state the pain is worse with increased activity and it does affect her ability perform activities of daily living such as cooking and cleaning. Patient has tried nqct-dak-arrenei medications such as Tylenol and ibuprofen along with heat and ice and topicals and at home stretching and exercise for longer than 12 weeks along with physical therapy. She is prescribed compounding cream. Her Daniel has been reviewed and is appropriate. Review of Systems: General: No recent weight changes, no fever, no sleep disturbances Respiratory: No cough, no shortness of air, no recurring pulmonary infections Cardiovascular/peripheral vascular: No chest pain, no palpitations, no edema, no shortness of breath Gastrointestinal: No new onset incontinence, normal bowel movements reported Genitourinary: No new onset incontinence Musculoskeletal: Low back pain, bilateral leg numbness/tingling Psychiatric: [Normal mood/affect] Neurological: [Denies weakness in extremities], [denies balance issues] Objective:: Physical Exam: General: Alert and oriented x3, no acute distress, pleasant and cooperative Lungs: Respirations even and unlabored, symmetrical chest expansion Eyes: PERRL Musculoskeletal: Flexion and extension of lumbar [spine] somewhat guarded secondary to pain Neurological: Speech clear, no gross sensory deficit \ FINDINGS: Multiplanar MR imaging of the lumbar spine was performed without contrast. On the sagittal T2-weighted images, disc degeneration is seen at L5-S1. The vertebral alignment is normal. There is no evidence of fracture. The conus has an unremarkable appearance. T11-T12: There is no significant canal stenosis or neural foraminal narrowing. T12-L1: There is no significant canal stenosis or neural foraminal narrowing. L1-2: There is no significant canal stenosis or neural foraminal narrowing. L2-3: An annular bulge is present. There is no significant canal stenosis or neural foraminal narrowing. L3-4: There is no significant canal stenosis or neural foraminal narrowing. L4-5: There is an annular bulge and mild left neural foraminal narrowing. L5-S1: There is an annular bulge and facet arthropathy. There is a posterior midline annular tear and small central disc protrusion. There is mild spurring of the SI joints. IMPRESSION: Degenerative changes and spondylosis as described. Posterior midline annular tear and small central disc protrusion at L5-S1. Reviewed, Interpreted and Dictated by Moisés Rosa III, MD Transcribed by Hebert Osorio Authenticated and [facility] Assessment:: Degenerative disc disease of cervical and lumbar spine with cervical and lumbar radiculopathy symptoms, lumbar spondylosis, lumbar facet arthropathy Plan:: Patient continues to experience significant pain in her low back and legs with limited range of motion. I have discussed again with her that she would benefit from a lumbar epidural steroid injection. Patient has tried and failed conservative therapy such as oral medication, heat and ice, topicals, physical therapy, at
[2022-12-17 16:01] VITALS: BP 114/80; PULSE 65; RESP 18; O2SAT 97; BMI 29.0
== END | disposition home or self-care (01) ==
PROVIDERS: PCP Internal Medicine Adolescent Medicine; Visit Provider Nurse Practitioner Family
DX: M51.16 Intervertebral disc disorders with radiculopathy, lumbar region (principal); M47.26 Other spondylosis with radiculopathy, lumbar region; M50.10 Cervical disc disorder with radiculopathy, unspecified cervical region
CPT/HCPCS: 99212; G0463

== ENCOUNTER 2022-12-30 13:30 | Day surgery (SDC) | payer OTHER, SELFPAY ==
[2022-12-30 13:47] VITALS: BP 132/90; PULSE 61; RESP 18; TEMP 36.3; O2SAT 100; BMI 29.2
[2022-12-30 14:15] VITALS: BP 132/87; PULSE 55; RESP 16; O2SAT 100
--- NOTE | 2022-12-30 14:31 | EXP.PAIN.PRO ---
Procedure Date: 12/30/22 Time: 14:00 Anesthesiologist:: Brannon Alfaro CRNA Complications:: None Pre-procedure Diagnosis:: Degenerative disc lumbar spine multilevels. Lumbar radiculopathy. Post-procedure Diagnosis:: Same. Indications for Procedure:: Patient is a very pleasant 47-year-old female that comes our clinic today for lumbar epidural steroid injection at the L4-5 level. Patient complains of low back pain as well as bilateral hip and leg radicular symptoms. Left greater than right. She rates her pain today 6/10. Procedure Details:: Procedure: Lumbar epidural steroid injection under fluoroscopy Informed consent was obtained and the risks and benefits of the procedure were explained to the patient. The patient was taken to the procedure room and noninvasive monitors placed, including noninvasive blood pressure cuff and pulse oximeter. The back was viewed using C-arm Fluoroscopy and prepped using Chloraprep as a cleansing solution and the L4-L5 interspace was palpated. Skin and subcutaneous tissues were anesthetized using lidocaine 1.5% and a 25-gauge needle. After this, an 18-gauge Touhy epidural needle was placed into the L4-L5 interspace and advanced using fluoroscopic guidance and loss of resistance to air until the epidural space was encountered. After confirmation of needle placement in the epidural space, with dye, a solution containing normal saline, 3 mL and Depo-Medrol 80 mg were incrementally injected into the lumbar epidural space. The patient tolerated the procedure well with no complications. The patient was observed in the Pain Clinic and then discharged home neurologically intact. Plan and Disposition:: Patient was discharged out incident.
== END 2022-12-30 14:15 | disposition home or self-care (01) ==
LOC: SC.PAINP 13:31
PROVIDERS: PCP Internal Medicine Adolescent Medicine; Visit Provider Nurse Anesthetist, Certified Registered
DX: M51.16 Intervertebral disc disorders with radiculopathy, lumbar region (principal)
CPT/HCPCS: 62323; J1040

== ENCOUNTER → 2023-01-12 13:49 | Outpatient (POV) | payer OTHER, SELFPAY ==
[2023-01-12 13:59] VITALS: BP 128/92; PULSE 86; RESP 18; O2SAT 97; BMI 28.7
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
== END ==
LOC: SC.PAIN 13:49
PROVIDERS: PCP Internal Medicine Adolescent Medicine; Visit Provider Nurse Practitioner Family
DX: M50.10 Cervical disc disorder with radiculopathy, unspecified cervical region (principal); M51.16 Intervertebral disc disorders with radiculopathy, lumbar region; M53.3 Sacrococcygeal disorders, not elsewhere classified; M79.18 Myalgia, other site
CPT/HCPCS: 99212; G0463

== ENCOUNTER 2023-04-21 11:47 | Day surgery (SDC) | payer OTHER, SELFPAY ==
[2023-04-21 11:55] VITALS: BP 139/90; PULSE 57; RESP 16; TEMP 36.4; O2SAT 98; BMI 30.4
[2023-04-21 12:07] VITALS: BP 146/86; PULSE 50; RESP 18; O2SAT 98
[2023-04-21] MEDS: IOPAMIDOL-200 (41%);10ML VIAL 10 ML IV (12:07)
[2023-04-21] MEDS: LIDOCAINE 1% 5ML PF VIAL 5 ML (12:07)
[2023-04-21] MEDS: methylPREDNISolone ACETATE 80MG/ML VIAL 80 MG (12:07)
[2023-04-21 12:08] VITALS: BP 146/86; PULSE 52; RESP 18; O2SAT 98
[2023-04-21 12:15] VITALS: BP 145/86; PULSE 48; RESP 18; O2SAT 98
--- NOTE | 2023-04-21 12:22 | P.PCN_ITS ---
Procedure Date: 04/21/23 Time: 12:00 Anesthesiologist:: Brannon Alfaro CRNA Complications:: None Pre-procedure Diagnosis:: Degenerative disc lumbar spine multilevels. Lumbar radiculopathy. Post-procedure Diagnosis:: Same. Indications for Procedure:: Patient is a very pleasant 47-year-old female comes our clinic today for caudal epidural steroid injection. Patient reports low back pain as well as tailbone pain that is constant, dull, aching. Patient also reports some bilateral hip an d leg radicular symptoms at times. She rates her pain 7/10. Procedure Details:: Informed consent was obtained and the risks and benefits of the procedure were explained to the patient. The patient was taken to the procedure room and noninvasive monitors placed, including noninvasive blood pressure cuff and pulse oximeter. The back was viewed using C-arm Fluoroscopy and prepped using Chloraprep as a cleansing solution and the caudal epidural space was visualized using fluoroscopy in a lateral position. Skin and subcutaneous tissues were anesthetized using lidocaine 1.5% and a 25-gauge needle. After this, an 22-gauge spinal needle was placed into the caudal epidural space and advanced using fluoroscopic guidance. After confirmation of needle placement in the caudal space, with dye, a solution containing normal saline, 3 mL and Depo-Medrol 80 mg and 1 mL of 1% lidocaine were incrementally injected into the caudal epidural space. The patient tolerated the procedure well with no complications. Plan and Disposition:: Patient was discharged without incident.
== END 2023-04-21 12:15 | disposition home or self-care (01) ==
PROVIDERS: PCP Internal Medicine Adolescent Medicine; Visit Provider Nurse Anesthetist, Certified Registered
DX: M51.16 Intervertebral disc disorders with radiculopathy, lumbar region (principal); M53.3 Sacrococcygeal disorders, not elsewhere classified
CPT/HCPCS: 62323; J1040; Q9966

== ENCOUNTER 2023-05-06 08:09 | Emergency (ER) | payer OTHER, SELFPAY ==
[2023-05-06] VITALS (11 sets, daily range): BP systolic 105–181; BP diastolic 74–130; PULSE 62–91; RESP 18–20; TEMP 36.6–36.7; O2SAT 95–100
--- NOTE | 2023-05-06 | ECG_ITS ---
APPROVED REPORT Exam: Resting ECG HR:75 bpm ECG Measurements Heart Rate 75 AXES IL 140 P 62 QRSd 78 QRS 19 QT 345 T 60 QTc 374 Conclusion SINUS RHYTHM WITH MARKED SINUS ARRHYTHMIA BORDERLINE ECG UNCONFIRMED REPORT Electronically signed by : Mike Odonnell, 05/06/2023 15:07:36
--- NOTE | 2023-05-06 08:11 | XR_ITS ---
FINAL REPORT CLINICAL HISTORY: chest pain with deep breaths FINDINGS: Two views of the chest were obtained. The heart size and pulmonary vascularity are within normal limits. The mediastinum is normal. No acute pulmonary abnormality is identified. There is no pneumothorax. The bony thorax is intact. IMPRESSION: No active cardiopulmonary disease. Reviewed, Interpreted and Dictated by Moisés Rosa III, MD Transcribed by Carmen Apodaca Authenticated and [facility]
[2023-05-06] MEDS: NITROGLYCERIN 0.4MG SL TABLET 0.400000000000000022 MG SL ×2 (08:16→08:21)
[2023-05-06] MEDS: ASPIRIN 81MG CHEWABLE TABLET 324 MG PO (08:25)
--- NOTE | 2023-05-06 08:27 | PC.NURSE ---
pt to radiology for chest pain
[2023-05-06 08:29] LABS: Basophils # 0.1 K/mm3 (0-0.2); Basophils % 1.5 % (0.1-2.0); Eosinophils # 0.2 K/mm3 (0.0-0.4); Eosinophils % 2.1 % (0.1-12.0); Hematocrit 44.4 % (37.0-47.0); Lymphocytes # 3.1 K/mm3 (0.7-4.5); Mean Corpuscular HGB Conc 33.7 g/dL (31.8-35.4); Mean Corpuscular Hemoglobin 28.6 pg (27.0-31.2); Mean Corpuscular Volume 84.8 fl (81-99); Mean Platelet Volume 8.7 fl (7.4-10.4); Monocytes # 0.5 K/mm3 (0.1-1.0); Neutrophils # 4.1 K/mm3 (1.8-7.8); Neutrophils % 51.4 % (37.0-80.0); Platelet Count 446 K/mm3 (142-424); Red Blood Count 5.24 M/mm3 (4.20-5.40); Red Cell Distribution Width 13.2 % (11.5-17.5); White Blood Count 8.1 K/mm3 (4.8-10.8)
--- NOTE | 2023-05-06 08:30 | PC.NURSE ---
pt returned from radiology
[2023-05-06 08:36] LABS: Alanine Aminotransferase 37 U/L (12-78); Albumin Level 4.8 g/dl (3.5-5.0); Albumin/Globulin Ratio 1.5 (1.1-1.8); Alkaline Phosphatase 121 U/L (38-126); Anion Gap 13.8 mEq/L (5-15); Aspartate Amino Transferase 36 U/L (14-36); Bilirubin,Total 0.5 mg/dl (0.2-1.3); Blood Urea Nitrogen 13 mg/dl (7-17); Carbon Dioxide 27 mmol/L (22.0-30.0); Chloride 104 mmol/L (98-107); Creatinine Clearance Estimated 78 mL/min (50-200); Estimated Glomerular Filt Rate 59 ml/min (>60); GFR (African American) 72 ML/MIN (>60); Globulin 3.2 g/dL (1.3-3.2); Glucose 94 mg/dl (74-100); Potassium 3.8 mmoL/L (3.5-5.1); Sodium 141 mmol/L (136-145)
--- NOTE | 2023-05-06 08:48 | ED_ITS ---
Discharge Plan Disposition Patient Disposition: Home, Self-Care Prescriptions Prescriptions: No Action cholecalciferol (vitamin D3) 125 mcg (5,000 unit) capsule 125 mcg PO DAILY Ubrelvy 100 mg tablet 100 mg PO ONCE PRN (Reason: migraine ) Qty: 16 5RF Rx Instructions: Take 1 tablet at onset of headache. May repeat after 2 hours if symptoms persist. Max dose 2 tablets in 24 hours. tizanidine 4 mg tablet 8 mg PO HS PRN (Reason: Muscle tension, chronic neck and back pain, chroni) 90 Days Qty: 180 0RF cyanocobalamin (vitamin B-12) 1,000 mcg/mL solution 1,000 mcg IM Q4W Patient Comments: INJECT 1 ML (CC) ONCE EVERY MONTH trazodone 100 mg tablet 100 mg PO HS omeprazole 40 mg capsule,delayed release(DR/EC) 40 mg PO BID Patient Comments: TAKE 1 CAPSULE BY MOUTH ONCE DAILY vilazodone 20 mg tablet 20 mg PO DAILY bupropion HCl 150 mg tablet extended release 24 hr 150 mg PO DAILY Qulipta 60 mg tablet 60 mg PO DAILY Referrals Follow up/Referrals: Kodak Newell MD [Primary Care Provider] - See instructions Activity Restrictions/Add. Instructions Additional Instructions/Restrictions: No emergent medical condition today identified. He had nonspecific pleuritic chest pain which is most likely pleurisy and idiopathic meaning no definitive cause was identified. Please follow-up with primary care doctor as needed you may take 60 mg of ibuprofen 3 times a day as needed for your symptoms over the next week. Please take that medication with food if you choose to do that. Return with any other concerns. Clinical Impressions Clinical Impression: Chest pain, pleuritic Discharge ED Provider: Mandy Odonnell HPI General Chief Complaint: Chest Pain Stated Complaint: chest pain Time Seen by Provider: 05/06/23 08:40 Mode of Arrival: Ambulatory Source of Information: Patient Limitations: No Limitations Description of Symptoms (Recalled from ER Triage Doc. by RN): Patient reports left sided chest pain that started around 630 this morning. States it feels like her boob is being ripped off and is radiating up to her shoulder. History of Present Illness HPI narrative: Patient is a 47-year-old female present today with chest pain. No history of any cardiopulmonary disease in the past. She has a history of a hysterectomy but is not on any exogenous estrogen or other steroids or hormones. Patient states that pain began at 630 this morning it is located in the left aspect of her breast and it is worse with inspiration. She does have some radiation into her left shoulder. Nonexertional no diaphoresis or shortness of breath associated with this. She did state a few days ago she had some right lower extremity swelling that is since resolved. No history of DVT or PE no hemoptysis no prolonged immobilizations. No family history of any clotting. She has not had any heart cath or stress test in the past. No recent fevers chills cough etc. Related Data Home Medications Medication Instructions Recorded Confirmed cyanocobalamin (vitamin B-12) 1,000 mcg IM Q4W SUPPLIMENT 11/14/21 04/21/23 1,000 mcg/mL injection solution trazodone 100 mg tablet 100 mg PO HS SLEEP 11/14/21 04/21/23 cholecalciferol (vitamin D3) 125 125 mcg PO DAILY SUPPLIMENT 10/06/22 04/21/23 mcg (5,000 unit) capsule omeprazole 40 mg capsule,delayed 40 mg PO BID STOMACH 10/06/22 04/21/23 release bupropion HCl 150 mg 24 hr tablet, 150 mg PO DAILY MOOD 10/13/22 04/21/23 extended release vilazodone 20 mg tablet 20 mg PO DAILY MOOD 10/13/22 04/21/23 atogepant 60 mg tablet (Qulipta) 60 mg PO DAILY MIGRAINES 10/22/22 04/21/23 Previous Rx's Medication Instructions Recorded tizanidine 4 mg tablet 8 mg (2 x 4 mg) PO HS PRN Muscle 10/06/22 tension, chronic neck and back pain, chroni 90 days #180 tabs ubrogepant 100 mg tablet (Ubrelvy) 100 mg PO ONCE PRN migraine 10/06/22 #16 tabs Allergies Allergy/AdvReac Type Severity Reaction Status Date / Time codeine Allergy Mild Unknown Verified 04/21/23 11:55 allergy reaction Penicillins Allergy Unknown Verified 04/21/23 11:55 allergy reaction pineapple Allergy Unknown Verified 04/21/23 11:55 allergy reaction PFSH [facility] Disclaimer: The information contained in this section may have been updated after the patient was seen, as this information can be updated by other users. Medical History Anxiety Depression Deviated nasal septum GERD (gastroesophageal reflux disease) Heart palpitations History of alcohol use disorder Relapse late July 2022. Last drink 40-50 days ago. Attending alcohol Anonymous meetings weekly Migraine Nasal sore Surgical History History of cholecystectomy History of hysterectomy Hx of tubal ligation Family History Other Alcoholism COPD (chronic obstructive pulmonary disease) Cancer Dementia Heart attack Hypertension Obesity Stroke Thyroid disorder Social History Smoking Status: Current every day smoker second hand exposure: No alcohol intake: former year quit: 2021 counseling given: Yes substance use type: denies use current occupational status: employed Travel in the last 8 weeks: None adopted: No caregiver/support person: No foster care: No household members: spouse housing: house lives independently: Yes marital status: number of children: 3 education level: high school service: No correction: No current occupation: works at [employer] office; lab Hx Recent Travel: No physical activity: none miguelina/samaritan: [employer] special miguelina needs: No working smoke detector in home: Yes fire extinguisher in home: No carbon monox detector in home: No firearms in home: Yes firearms unloaded and locked: Yes do you feel safe at home: Yes victim of physical abuse: No victim of emotional abuse: No victim of sexual abuse: No ROS Obtained: Yes All systems reviewed & no additional complaints except as documented Physical Exam General General appearance: alert Respiratory Respiratory exam: Present normal lung sounds bilaterally and respiratory distress Cardiovascular Cardiovascular exam: Present regular rate and normal rhythm Neurological Exam Neurological exam: Present alert and oriented X3 HEART Score HEART Score HEART Score assessment performed?: Yes History (anamnesis): Slightly suspicious ECG: Normal Age: 45-65 years Risk factors: 1-2 risk factors Troponin: </= normal limit HEART Score: 2 Critical Care Critical Care Time Critical Care Time: No Medical Decision Making Daniel Inquiry Pt receiving controlled substance: No Vital Signs Vital Signs: 05/06/23 08:09 05/06/23 08:18 05/06/23 08:20 Temperature 98.0 F Temperature Source Oral Pulse Rate 82 91 H Pulse Rate [Radial] 62 Respiratory Rate 20 Blood Pressure 135/110 H 109/79 L Blood Pressure [Right Arm] 181/130 H Blood Pressure Mean [Right Arm] 147 Blood Pressure Source [Right Arm] Automatic Cuff Blood Pressure Position [Right Arm] Sitting 02 Sat by Pulse Oximetry 100 99 98 Oxygen Delivery Method Room Air 05/06/23 08:23 05/06/23 08:49 05/06/23 09:00 Temperature Temperature Source Pulse Rate 85 74 83 Pulse Rate [Radial] Respiratory Rate Blood Pressure 112/74 105/78 L 112/79 Blood Pressure [Right Arm] Blood Pressure Mean [Right Arm] Blood Pressure Source [Right Arm] Blood Pressure Position [Right Arm] 02 Sat by Pulse Oximetry 96 96 96 Oxygen Delivery Method Room Air Room Air 05/06/23 09:30 05/06/23 10:00 05/06/23 10:30 Temperature Temperature Source Pulse Rate 75 64 63 Pulse Rate [Radial] Respiratory Rate Blood Pressure 118/81 115/84 110/83 Blood Pressure [Right Arm] Blood Pressure Mean [Right Arm] Blood Pressure Source [Right Arm] Blood Pressure Position [Right Arm] 02 Sat by Pulse Oximetry 95 98 98 Oxygen Delivery Method Room Air Room Air Room Air 05/06/23 11:01 Temperature Temperature Source Pulse Rate 71 Pulse Rate [Radial] Respiratory Rate Blood Pressure 124/88 Blood Pressure [Right Arm] Blood Pressure Mean [Right Arm] Blood Pressure Source [Right Arm] Blood Pressure Position [Right Arm] 02 Sat by Pulse Oximetry 95 Oxygen Delivery Method Room Air Lab Data Lab results reviewed: Yes I reviewed the patient's lab results. Labs: Lab Results 05/06/23 08:13: WBC 8.1, RBC 5.24, Hgb 15.0, Hct 44.4, MCV 84.8, MCH 28.6, MCHC 33.7, RDW 13.2, Plt Count 446 H, MPV 8.7, Neut % (Auto) 51.4, Lymph % (Auto) 39.0, Boyle % (Auto) 6.0, Eos % (Auto) 2.1, Baso % (Auto) 1.5, Neut # (Auto) 4.1, Lymph # (Auto) 3.1, Boyle # (Auto) 0.5, Eos # (Auto) 0.2, Baso # (Auto) 0.1, D- Dimer 0.35, Sodium 141, Potassium 3.8, Chloride 104, Carbon Dioxide 27, Anion Gap 13.8, BUN 13, Creatinine 1.00, Estimated Creat Clear 78, Estimated GFR 59, Est GFR ( Amer) 72, Glucose 94, Calcium 10.0, Total Bilirubin 0.5, AST 36, ALT 37, Alkaline Phosphatase 121, Troponin I < 0.01, Total Protein 8.0, Albumin 4.8, Globulin 3.2, Albumin/Globulin Ratio 1.5 05/06/23 10:51: Troponin I < 0.01 05/06/23 08:13 05/06/23 08:13 Response Orders (Tests/Meds): ED MEDICATIONS Generic Name Dose Route Start Last Admin Trade Name Freq PRN Reason Stop Dose Admin Nitroglycerin 0.4 mg 05/06/23 08:11 05/06/23 08:21 Nitroglycerin 0.4mg Sl Tablet SL 06/05/23 08:10 0.4 mg Q5MINP PRN Administration Chest Pain Discontinued Medications Generic Name Dose Route Start Last Admin Trade Name Freq PRN Reason Stop Dose Admin Aspirin 324 mg 05/06/23 08:11 05/06/23 08:25 Aspirin 81mg Chewable Tablet PO 05/06/23 08:12 324 mg ONCE ONE Administration Ketorolac Tromethamine 15 mg 05/06/23 08:46 05/06/23 08:50 Ketorolac 30mg/Ml Vial IV 05/06/23 08:47 15 mg ONCE ONE Administration ORDERS Category Date Time Status XR chest 2V Stat Exams 05/06/23 08:11 Taken Complete Blood Count Auto Diff Stat Lab 05/06/23 08:13 Completed Comprehensive Metabolic Panel Stat Lab 05/06/23 08:13 Completed D-Dimer Stat Lab 05/06/23 08:13 Completed Troponin I Q3H Lab 05/06/23 10:51 Completed Troponin I Q3H Lab 05/06/23 14:15 Ordered Troponin I Stat Lab 05/06/23 08:13 Completed MDM Narrative Medical Decision Narrative: Patient is a 47-year-old female presented with left pleuritic chest pain. Faroese includes pleurisy, musculoskeletal chest wall pain, pulmonary embolism, pneumonia, acute coronary syndrome, etc. Will get troponins and D-dimer to evaluate this further. Toradol has been given. Prior to my evaluation splint and nitroglycerin were given without any significant improvement. EKG was performed I personally interpreted shows a ventricular rate of 75 normal axis no acute ischemic changes noted no significant conduction abnormalities. Reassessment 926 opponent undetectably low D-dimer within threshold of not proceeding further with a CT PE effectively ruling out pulmonary embolism. ED observation order placed at 9:25 AM patient be discharged if the second troponin is negative. Patient remained stable. Reassessment 1137 after several hours of observation patient remains asymptomatic second troponin undetectably low. As stated above patient will follow-up with primary care doctor. This is not consistent with acute cardiopulmonary emergency at this point. Most likely idiopathic pleurisy. This was discussed with the patient she will return with any worsening symptoms otherwise we will follow-up primary care doctor.
[2023-05-06] MEDS: KETOROLAC 30MG/ML VIAL 15 MG IV (08:50)
[2023-05-06 08:51] LABS: Troponin I < 0.01 ng/ml (0.00-0.034)
[2023-05-06 09:11] LABS: D-Dimer 0.35 ug/mL (0.0-0.5)
[2023-05-06 11:25] LABS: Troponin I < 0.01 ng/ml (0.00-0.034)
== END 2023-05-06 11:43 | disposition home or self-care (01) ==
PROVIDERS: Emergency Provider Student in an Organized Health Care Education/Training Program; PCP Internal Medicine Adolescent Medicine
DX: R07.81 Pleurodynia (principal); R07.1 Chest pain on breathing; F17.210 Nicotine dependence, cigarettes, uncomplicated; K21.9 Gastro-esophageal reflux disease without esophagitis
CPT/HCPCS: 71046; 80053; 84484; 85025; 85378; 93005; 96374; 99285

== ENCOUNTER 2023-07-06 09:32 | Outpatient (CLI) | payer OTHER, SELFPAY ==
--- NOTE | 2023-07-06 09:43 | US_ITS ---
FINAL REPORT TECHNIQUE: Ultrasound images of the thyroid were obtained. CLINICAL HISTORY: THYROMEGALY FINDINGS: The right lobe of the thyroid measures 4.9 x 1.8 x 1.2 cm. It is normal in echogenicity. The left lobe of the thyroid measures 4.8 x 1.3 x 1.2 cm. It is normal in echogenicity. Thyroid is enlarged and heterogeneous. Nodule 1 in the isthmus measures 4 x 3 x 2 mm, is solid and hypoechoic, TR 4. Nodule 2 in the right lobe measures 4 x 4 x 3 mm is solid and isoechoic, TR 3. There is a presumed lymph node inferior to the right hepatic lobe measuring 13 mm. IMPRESSION: TR 3 and TR 4 nodules as above. Reviewed, Interpreted and Dictated by Moisés Rosa III, MD Transcribed by Luz Colbert Authenticated and [facility]
== END 2023-07-06 23:59 | disposition home or self-care (01) ==
LOC: RAD 09:32
PROVIDERS: PCP Nurse Practitioner Family; Visit Provider Nurse Practitioner Family
DX: E01.0 Iodine-deficiency related diffuse (endemic) goiter (principal)
CPT/HCPCS: 76536

== ENCOUNTER 2024-01-15 09:18 | Outpatient (CLI) | payer OTHER, SELFPAY ==
--- NOTE | 2024-01-15 09:18 | US_ITS ---
PROCEDURE: US TRANSVAGINAL CLINICAL INDICATION: Pelvic Pressure/Pain COMPARISON: No exams were available for comparison FINDINGS: Transvaginal sonographic images of the pelvis were obtained. UTERUS: Surgically absent The vaginal cuff is intact and appears normal. LEFT OVARY: Not visualized RIGHT OVARY: 1.4cmx 1.4cmx1.7 cm with a volume of 1.8ml. Appears atrophic. Right ovary is seen and appears atrophic. Doppler flow to right ovary is seen. There is a small amount of fluid in the cul-de-sac. IMPRESSION: 1. The uterus is surgically absent. 2. The vaginal cuff is intact. Bowel is seen at the vaginal cuff in the cul-de-sac. 3. The right ovary is seen and appears normal and atrophic. The left ovary is not visualized. It may be surgically absent. 4. There is a small amount of fluid in the cul-de-sac seen on the transverse view. Dictated by: Tejas Nash MD 01/15/2024 17:15 Tejas Nash MD in [place] 01/15/2024 17:15
== END 2024-01-15 23:59 | disposition home or self-care (01) ==
LOC: RAD 09:18
PROVIDERS: PCP Nurse Practitioner Family; Visit Provider Obstetrics & Gynecology
DX: R10.2 Pelvic and perineal pain (principal)
CPT/HCPCS: 76830

== ENCOUNTER 2024-01-25 12:56 | Outpatient (CLI) | payer OTHER, SELFPAY ==
--- NOTE | 2024-01-25 12:58 | US_ITS ---
FINAL REPORT TECHNIQUE: Sonographic images of the thyroid gland were obtained in the longitudinal and transverse planes. CLINICAL HISTORY: NODULES COMPARISON: 07/06/2023 FINDINGS: The right lobe measures 1.4 x 4.2 x 1.3 cm. The right lobe is heterogeneous. There is a 3 mm hypoechoic nodule not seen previously, TR 3. The previously seen hypoechoic nodule in the lower pole is not seen on today's exam. The left lobe measures 1.3 x 4.4 x 1.3 cm. The left lobe is heterogeneous. No discrete nodules. The isthmus measures 4 mm. Small 4 mm isthmus nodule appears to represent a cyst. IMPRESSION: No concerning nodules. Subcentimeter hypoechoic right thyroid nodule does not appear to be the same as seen on the previous exam and is too small for follow-up per TI-RADS criteria. Reviewed, Interpreted and Dictated by Eliza Weinstein MD Transcribed by Jennifer Sanches Authenticated and [facility]
== END 2024-01-25 23:59 | disposition home or self-care (01) ==
LOC: RAD 12:56
PROVIDERS: PCP Nurse Practitioner Family; Visit Provider Otolaryngology
DX: E04.1 Nontoxic single thyroid nodule (principal)
CPT/HCPCS: 76536